=== PATIENT | male | born 1995 | race Caucasian/White ===

== ENCOUNTER 2016-11-23 14:03 | Emergency (ER) | payer OTHER ==
[~2016-11-23] VITALS: Ht 177.8 cm; Wt 77.1 kg
[2016-11-23] MEDS ORDERED: TETANUS & DIPHTHERIA TOXOIDS (Td) 0.5 ML (DECAVAC) VIAL IM ONE (14:40)
[2016-11-23] MEDS ORDERED: LIDOCAINE/EPINEPHRINE 2% 1:100,000 (XYLOCAINE) 30 ML VIAL INJ ONE (14:40)
[2016-11-23] MEDS ORDERED: TETANUS, DIPTHERIA, PERTUSSIS (ADACELL) VACCINE 0.5 ML VIAL IM ONE (14:45)
[2016-11-23 15:11] LABS: BASOPHILS % (AUTO) 0 % (0-2); EOSINOPHILS % (AUTO) 0 % (0-4); LYMPHOCYTES # (AUTO) 1.5 X10^3; MEAN CORPUSCULAR HEMOGLOBIN 32.3 PG (26.0-34.0); MEAN CORPUSCULAR HGB CONC 33.9 g/dL (31.0-37.0); MEAN CORPUSCULAR VOLUME 95 FL (80-100); MEAN PLATELET VOLUME 9.8 FL (6.0-9.5); MONOCYTES # (AUTO) 0.5 X10^3; MONOCYTES % (AUTO) 10 % (3-11); NEUTROPHILS # (AUTO) 3.3 X10^3; NEUTROPHILS % (AUTO) 62 % (51-67); PLATELET COUNT 215 10^3uL (150-450); WHITE BLOOD COUNT 5.36 10^3uL (4.0-11.0)
--- NOTE | 2016-11-23 15:20 | Diagnostic Imaging Report ---
PROCEDURE: CT head and maxillofacial without contrast. TECHNIQUE: Multiple contiguous axial images were obtained through the head and facial bones without the use of intravenous contrast. AVAILABLE COMPARISONS: None. INDICATION: Trauma. Laceration over left eye. Weakness. FINDINGS: CT brain: Normal-sized ventricles. No mass effect or shift of midline structures. There is no acute intra-axial or extra-axial hemorrhage. No CT evidence for acute infarct or mass lesion. There are no abnormally hyperdense vascular structure to indicate acute thrombosis. Calvarium is within normal limits. There is no mastoid effusion. The clivus is intact. IMPRESSION: Negative CT of the brain without intravenous contrast. FINDINGS: CT facial bones: Pterygoid plates are intact. Zygomatic maxillary complexes are normal. Medial orbital regalado are intact. Nasal bones are intact. There is a hypoplastic left maxillary sinus. Soft tissue thickening of the nasal cavity at the medial aspect of the left maxillary sinus is present, which appears chronic. The mandible is intact. Visualized cervical spine is unremarkable. Orbital rims and floors are intact. The globes are intact. Left periorbital soft tissue swelling is present. IMPRESSION: Left celso-orbital soft tissue swelling. No acute osseous abnormality is identified Dictated by: Dictated on workstation # [id number]
[2016-11-23 15:26] LABS: ALBUMIN 4.7 g/dL (3.4-5.0); ANION GAP 18.7 MEQ/L (3-15); CALCULATED IONIZED CALCIUM 3.7 mg/dL (3.8-4.6); TOTAL PROTEIN 8.1 g/dL (6.4-8.5)
[2016-11-23 15:28] LABS: BILIRUBIN,URINE Negative (Negative); COLOR,URINE Yellow; GLUCOSE, URINE (UA) Negative (Negative); LEUKOCYTE ESTERASE ,URINE Negative (Negative); UROBILINOGEN,URINE 0.2 mg/dL (0.2-1.0)
[2016-11-23 15:29] LABS: CLARITY,URINE Slightly Cloudy
--- NOTE | 2016-11-23 15:35 | Diagnostic Imaging Report ---
INDICATION: Left hip pain. EXAMINATION: Left hip, 2 views. AVAILABLE COMPARISONS: None FINDINGS: The obtained views demonstrate no evidence for fracture, dislocation, or other significant abnormality. No focal osseous lesion is seen. IMPRESSION: No demonstrated lesion. Dictated by: Dictated on workstation # [id number]
[2016-11-23 15:40] LABS: AMPHETAMINE SCREEN, URINE Negative (Negative); CANNABINOID SCREEN, URINE Negative (Negative); METHAMPHETAMINE SCREEN URINE S NEGATIVE (NEGATIVE); OPIATE SCREEN URINE Negative (Negative); PROPOXYPHENE STAT NEGATIVE (NEGATIVE)
[2016-11-23] MEDS ORDERED: BACITRACIN OINTMENT 0.9 GM PACKET TOP ONE (16:00)
[2016-11-23 16:10] VITALS: BP 137/95
== END 2016-11-23 16:11 | disposition home or self-care (01) ==
LOC: ED 14:09
DX: S01.112A Laceration without foreign body of left eyelid and periocular area, initial encounter (principal); S06.0X9A Concussion with loss of consciousness of unspecified duration, initial encounter; S50.312A Abrasion of left elbow, initial encounter; S70.02XA Contusion of left hip, initial encounter; W18.39XA Other fall on same level, initial encounter; Y92.414 Local residential or business street as the place of occurrence of the external cause; F10.129 Alcohol abuse with intoxication, unspecified; Y90.7 Blood alcohol level of 200-239 mg/100 ml
CPT/HCPCS: 12011; 36415; 70450; 70486; 73502; 80053; 80307; 80320; 81003; 85025; 90715; 96372; 99282; 99283

== ENCOUNTER 2016-11-30 07:05 | Outpatient (RCR) | payer OTHER ==
[~2016-11-30] VITALS: Ht 177.8 cm; Wt 77.1 kg
[2016-11-30 07:21] VITALS: BP 130/79
== END 2016-12-26 18:29 | disposition home or self-care (01) ==
LOC: EUOP 12-26 18:29
PROVIDERS: ATTEND Family Medicine
DX: S01.112D Laceration without foreign body of left eyelid and periocular area, subsequent encounter (principal); W18.39XD Other fall on same level, subsequent encounter